=== PATIENT | male | born 1985 | race African-American/Black ===

== ENCOUNTER 2017-05-03 11:01 | Emergency (ER) | payer SELFPAY ==
[~2017-05-03] VITALS: Ht 170.2 cm; Wt 86.4 kg
[~2017-05-03 11:01] MED LIST: BACTRIM DS 8001 TAB PO; CLEOCIN HCL300 MG PO; NORCO 325 MG-51 TAB PO
[2017-05-03 13:20] VITALS: BP 139/75; PULSE 90; TEMP 99.1
== END 2017-05-03 13:35 | disposition home or self-care (01) ==
LOC: COL.ER 11:01
DX: J10.1 Influenza due to other identified influenza virus with other respiratory manifestations (principal); F17.210 Nicotine dependence, cigarettes, uncomplicated